=== PATIENT | male | born 1960 | race Two or more races ===

== ENCOUNTER 2018-04-24 09:15 | Emergency (ER) | payer OTHER ==
[~2018-04-24] VITALS: Ht 175.3 cm; Wt 74.8 kg
[~2018-04-24 09:15] MED LIST: GLUCOPHAGE XR500 MG PO; GLUCOTROL10 MG PO; LIPITOR20 MG PO
[2018-04-24] MEDS ORDERED: PRINIVIL20 MG PO (09:53)
== END 2018-04-25 13:46 | disposition home or self-care (01) ==
LOC: ER 09:15
DX: R42 Dizziness and giddiness (principal); I95.9 Hypotension, unspecified; R53.1 Weakness

== ENCOUNTER → 2018-06-17 | Emergency (ER) | payer OTHER ==
[~2018-06-17] VITALS: Ht 175.3 cm; Wt 74.8 kg
[~2018-06-17] MED LIST changes: +PRINIVIL20 MG PO; +VISTARIL25 MG PO
== END | disposition home or self-care (01) ==
LOC: ER 01:26
DX: R00.2 Palpitations (principal); F41.1 Generalized anxiety disorder

== ENCOUNTER 2018-12-24 18:47 | Emergency (ER) | payer OTHER ==
[~2018-12-24] VITALS: Ht 175.3 cm; Wt 74.8 kg
== END 2018-12-24 23:54 | disposition home or self-care (01) ==
LOC: ER 18:47
DX: K59.09 Other constipation (principal); R42 Dizziness and giddiness

== ENCOUNTER 2019-03-07 10:01 | Emergency (ER) | payer OTHER ==
[~2019-03-07] VITALS: Ht 175.3 cm; Wt 74.8 kg
== END 2019-03-07 14:46 | disposition home or self-care (01) ==
LOC: ER 10:01
DX: R53.81 Other malaise (principal)

== ENCOUNTER 2019-09-04 23:05 | Emergency (ER) | payer OTHER ==
[~2019-09-04] VITALS: Ht 175.3 cm; Wt 78.0 kg
== END 2019-09-05 05:45 ==
LOC: ER 23:05
DX: H43.391 Other vitreous opacities, right eye (principal)

== ENCOUNTER 2020-11-05 14:43 | Outpatient (CLI) | payer OTHER | END 2020-11-05 14:44 | disposition home or self-care (01) | LOC: PPH VACUNA 14:43 | DX: Z23 Encounter for immunization (principal) ==

== ENCOUNTER 2022-07-22 13:43 | Outpatient (CLI) | payer OTHER | END 2022-07-22 13:53 | disposition home or self-care (01) | LOC: PPH VACUNA 13:43 | PROVIDERS: ATTEND Emergency Medicine Pediatric Emergency Medicine | DX: Z23 Encounter for immunization (principal) ==

== ENCOUNTER 2022-10-16 15:45 | Emergency (ER) | payer OTHER ==
[~2022-10-16] VITALS: Ht 175.3 cm; Wt 77.1 kg
[2022-10-16] MEDS ORDERED: GLIPIZIDE XL10 MG (16:44)
[2022-10-16] MEDS ORDERED: CRESTOR40 MG PO (16:45)
[2022-10-16] MEDS ORDERED: TOPROL XL25 M1 (16:45)
[2022-10-16] MEDS ORDERED: LYRICA50 MG PO (16:47)
[2022-10-16] MEDS ORDERED: ECOTRIN325 M1 PO (16:47)
[2022-10-16] MEDS ORDERED: TAMS0.4C PO (16:47)
[2022-10-16] MEDS ORDERED: HORIZANT300 MG (16:48)
[2022-10-16] MEDS ORDERED: CLONAZEPAM0.5 MG PO (16:48)
[2022-10-16] MEDS ORDERED: ZOLPIDEM TARTR3.5 MG (16:48)
[2022-10-16] MEDS ORDERED: DRAMAMINE LESS25 MG (16:49)
[2022-10-16] MEDS ORDERED: LANTUS SOL100 UNIT/1 (16:50)
== END 2022-10-16 18:57 | disposition home or self-care (01) ==
LOC: ER 15:45
DX: R42 Dizziness and giddiness (principal); R51.9 Headache, unspecified

== ENCOUNTER 2023-06-05 13:41 | Emergency (ER) | payer OTHER ==
[~2023-06-05] VITALS: Ht 175.3 cm; Wt 77.1 kg
[~2023-06-05 13:41] MED LIST changes: +CLONAZEPAM0.5 MG PO; +CRESTOR40 MG PO; +DRAMAMINE LESS25 MG; +ECOTRIN325 M1 PO; +GLIPIZIDE XL10 MG; +HORIZANT300 MG; +LANTUS SOL100 UNIT/1; +LYRICA50 MG PO; +TAMS0.4C PO; +TOPROL XL25 M1; +ZOLPIDEM TARTR3.5 MG
[2023-06-05] MEDS ORDERED: JENTADUETO 2.51 EAC2 (15:26)
[2023-06-05 17:13] LABS: HEMOGLOBIN 14.6 g/dL (13-16.00); MEAN CELL VOLUME 92.8 fL (80.0-100.00); MEAN CORPUSCULAR HEMOGLOBIN 31.6 pg (27.00-32.0); PLATELET COUNT 284 K/uL (150-450); RED BLOOD COUNT 4.63 M/uL (4.00-6.00); RED CELL DISTRIBUTION WIDTH 14.3 % (11.5-14.5)
[2023-06-05 17:49] LABS: ALBUMIN 3.7 gm/dL (3.4-5.0); BILIRUBIN TOTAL 0.27 mg/dL (0.3-1.2); CREATININE SERUM 2.55 mg/dL (0.70-1.30); GFR 25.62; GLOBULINA 3.6 G/DL (2.4-3.5); POTASSIUM 4.34 mEq/L (3.5-5.1); TOTAL PROTEIN 7.3 gm/dL (6.4-8.2)
== END 2023-06-05 19:35 | disposition home or self-care (01) ==
LOC: ER 13:41
PROVIDERS: General Practice
DX: R55 Syncope and collapse (principal); E11.9 Type 2 diabetes mellitus without complications; Z79.84 Long term (current) use of oral hypoglycemic drugs; I10 Essential (primary) hypertension; Z86.79 Personal history of other diseases of the circulatory system

== ENCOUNTER 2023-08-19 11:05 | Emergency (ER) | payer OTHER ==
[~2023-08-19] VITALS: Ht 175.3 cm; Wt 78.0 kg
[~2023-08-19 11:05] MED LIST changes: +JENTADUETO 2.51 EAC2
[2023-08-19] MEDS ORDERED: NORFLEX100MG PO (17:07)
== END 2023-08-19 17:38 | disposition home or self-care (01) ==
LOC: ER 11:06
DX: S79.811A Other specified injuries of right hip, initial encounter (principal); S70.01XA Contusion of right hip, initial encounter; W19.XXXA Unspecified fall, initial encounter; Y93.89 Activity, other specified; Y92.89 Other specified places as the place of occurrence of the external cause; Y99.8 Other external cause status; E11.9 Type 2 diabetes mellitus without complications; Z79.4 Long term (current) use of insulin

== ENCOUNTER 2024-04-28 12:46 | Inpatient (IN) | payer OTHER ==
[~2024-04-28] VITALS: Ht 175.3 cm; Wt 77.1 kg
[~2024-04-28 12:46] MED LIST changes: +NORFLEX100MG PO
[2024-04-28] MEDS ORDERED: MORPHINE SULFATE 4 MG/ML VIAL IV ONE (14:00)
[2024-04-28] MEDS ORDERED: 0.9 % SODIUM CHLORIDE 1,000 ML IV ONE (14:00)
[2024-04-28] MEDS ORDERED: FAMOtidine 10 MG/ML (4ML VIAL) IV ONE (14:00)
[2024-04-28 14:23] LABS: HEMATOCRIT 47.5 % (39.0-48.0); HEMOGLOBIN 15.9 g/dL (13-16.00); MEAN CORPUSCULAR HEMOGLOBIN 31.1 pg (27.00-32.0); MEAN CORPUSCULAR HGB CONC 33.4 g/dl (32.0-36.0); PLATELET COUNT 333 K/uL (150-450); RED CELL DISTRIBUTION WIDTH 12.9 % (11.5-14.5)
[2024-04-28 14:48] LABS: ALBUMIN 3.6 gm/dL (3.4-5.0); BILIRUBIN TOTAL 0.38 mg/dL (0.3-1.2); CALCIUM 9.1 mg/dL (8.5-10.1); CREATININE SERUM 2.27 mg/dL (0.70-1.30); GFR 29.21; GLOBULINA 3.7 G/DL (2.4-3.5); POTASSIUM 4.51 mEq/L (3.5-5.1); TOTAL PROTEIN 7.3 gm/dL (6.4-8.2)
[2024-04-28 15:53] LABS: ABG PH 7.327 (7.35-7.45); ABG PO2 84.7 mmHg (80-100); ABG pCO2 43.2 mmHg (35-45); BASE EXCESS -3.8 mmol/l; BICARBONATE 22.1 mmol/l (23-25); SaO2 95.2 %; Tco2 23.4 mmol/l
[2024-04-28 16:04] LABS: PH,URINE 5.5 (5.0-8.0); URINE APPEARANCE Clear; URINE BILIRRUBIN Negative (NEGATIVE); URINE BLOOD Negative; URINE COLOR Yellow; URINE KETONE Trace (NEGATIVE); URINE LEUKOCYTE Negative; URINE NITRATE Negative; URINE UROBILINOGEN 0.2 E.U./dl
[2024-04-28 16:07] LABS: URINE BACTERIA 26.4 uL (0.0-1933); URINE CAST 2.74 uL (0.0-1.40); URINE EPITHELIAL CELLS 8.4 uL (0.0-38.8); URINE RBC 3.2 uL (0.0-20.8); URINE WBC 7.2 uL (0.0-23.2)
[2024-04-28 16:09] LABS: allen test SATISFACTORY; o2 21 %; puncture site RADIAL RIGHT
[2024-04-28 16:36] LABS: URINE GLUCOSE >=1000 MG/DL (NEGATIVE); URINE PROTEIN 100 (NEGATIVE)
[2024-04-28] MEDS ORDERED: CLONAZEPAM 0.5 MG TABLET PO SCH (20:53)
[2024-04-28] MEDS ORDERED: TAMSULOSIN HCL 0.4 MG CAP PO SCH (20:53)
[2024-04-28] MEDS ORDERED: 0.9 % SODIUM CHLORIDE 1,000 ML IV SCH (21:00)
[2024-04-28] MEDS ORDERED: ACETAMINOPHEN 500 MG GEL..CAP PO PRN (21:00)
[2024-04-28] MEDS ORDERED: ONDANSETRON HCL 4 MG in 0.9 % SODIUM CHLORIDE 50 ML IV PRN (21:00)
[2024-04-28 21:59] LABS: INR 1.04; PARTIAL THROMBOPLASTIN TIME 32.9 SECONDS (22.0-34.0); PROTHROMBIN TIME 11.3 SECONDS (9.0-11.5)
[2024-04-28 22:02] LABS: MAGNESIUM 2.6 mg/dL (1.8-2.4); PHOSPHOROUS 4.6 mg/dL (2.5-4.9)
[2024-04-28] MEDS ORDERED: MEPERIDINE HCL/PF 25 MG/ML VIAL IM PRN (22:15)
[2024-04-28 22:43] VITALS: BP 142/85; O2SAT 96
[2024-04-29 01:10] VITALS: BP 130/79; O2SAT 100
[2024-04-29 08:49] VITALS: BP 101/64; O2SAT 98
[2024-04-29] MEDS ORDERED: ENOXAPARIN SODIUM 30 MG/0.3 ML SYRINGE SUBCUTANEO SCH (09:00)
[2024-04-29] MEDS ORDERED: FAMOTIDINE/PF 20 MG in 0.9 % SODIUM CHLORIDE 8 ML IV PUSH SCH (09:00)
[2024-04-29] MEDS ORDERED: ATORVASTATIN CALCIUM 40 MG TABLET PO SCH (09:00)
[2024-04-29] MEDS ORDERED: METOPROLOL SUCCINATE 25 MG TAB.SR.24H PO SCH (09:00)
[2024-04-29] MEDS ORDERED: GABAPENTIN 300 MG CAPSULE PO SCH (17:00)
[2024-04-29 17:52] VITALS: BP 130/80
[2024-04-29] MEDS ORDERED: DOCUSATE CALCIUM 240 MG CAPSULE PO SCH (18:03)
[2024-04-29] MEDS ORDERED: LACTULOSE 20 G/30 ML BLIST.PACK PO STA (18:03)
[2024-04-30 01:46] VITALS: BP 59/77; O2SAT 100
[2024-04-30 01:49] VITALS: BP 159/77; O2SAT 100
[2024-04-30 06:31] LABS: HEMATOCRIT 43.6 % (39.0-48.0); HEMOGLOBIN 14.7 g/dL (13-16.00); MEAN CELL VOLUME 92.2 fL (80.0-100.00); MEAN CORPUSCULAR HEMOGLOBIN 31.1 pg (27.00-32.0); MEAN CORPUSCULAR HGB CONC 33.8 g/dl (32.0-36.0); PLATELET COUNT 253 K/uL (150-450); RED BLOOD COUNT 4.73 M/uL (4.00-6.00); RED CELL DISTRIBUTION WIDTH 13.1 % (11.5-14.5)
[2024-04-30 07:13] LABS: CALCIUM 8.5 mg/dL (8.5-10.1); CREATININE SERUM 1.89 mg/dL (0.70-1.30); GFR 36.09; POTASSIUM 4.84 mEq/L (3.5-5.1)
[2024-04-30 07:45] VITALS: BP 91/57; O2SAT 90
== END 2024-04-30 12:52 | disposition home or self-care (01) | DRG 684 ==
LOC: ER 12:47 → MEDI 21:29
PROVIDERS: General Practice; ADMIT Internal Medicine; ATTEND Internal Medicine
PROC: BW21ZZZ Computerized Tomography (CT Scan) of Abdomen and Pelvis (ICD-10-PCS; principal; 2024-04-28)
DX: N17.9 Acute kidney failure, unspecified (principal); I95.9 Hypotension, unspecified; I12.9 Hypertensive chronic kidney disease with stage 1 through stage 4 chronic kidney disease, or unspecified chronic kidney disease; E11.22 Type 2 diabetes mellitus with diabetic chronic kidney disease; N18.9 Chronic kidney disease, unspecified; Z79.4 Long term (current) use of insulin

== ENCOUNTER 2025-03-06 09:00 | Day surgery (SDC) | payer OTHER ==
[2025-03-06] MEDS ORDERED: DIPHENHYDRAMINE HCL 50 MG/ML VIAL 1ML IV ONE (15:00)
[2025-03-06] MEDS ORDERED: fentaNYL CITRATE 50 MCG/ML AMPUL IV PUSH ONE (15:00)
[2025-03-06] MEDS ORDERED: MIDAZOLAM HCL 2 MG/2 ML VIAL IV ONE (15:00)
== END 2025-03-06 16:10 | disposition home or self-care (01) ==
LOC: AMB-ENDOS 09:00
PROVIDERS: ATTEND Internal Medicine
DX: D12.4 Benign neoplasm of descending colon (principal); D12.5 Benign neoplasm of sigmoid colon; K63.5 Polyp of colon; K57.30 Diverticulosis of large intestine without perforation or abscess without bleeding; K64.4 Residual hemorrhoidal skin tags; Z86.0101 Personal history of adenomatous and serrated colon polyps

== ENCOUNTER 2025-08-02 08:23 | Emergency (ER) | payer OTHER ==
[~2025-08-02] VITALS: Ht 175.3 cm; Wt 74.8 kg
[2025-08-02] MEDS ORDERED: DAPAGLIFLOZIN10 MG (08:43)
[2025-08-02] MEDS ORDERED: ADULT ASPIRIN81 MG (08:44)
[2025-08-02] MEDS ORDERED: CLONIDINE HCL0.2 MG (08:45)
[2025-08-02 09:40] LABS: BASO % 0.4 % (0.1-1.2); EOS # 0.02 (0.04-0.54); EOS % 0.2 % (0.7-7.0); LYMPH # 1.41 (1.18-3.74); LYMPH % 11.9 % (19.3-53.1); MEAN PLATELET VOLUME 10.50 fl (9.4-12.4); MONO # 0.88 (0.24-0.82); MONO % 7.5 % (4.7-12.5); NEUT # 9.40 (1.56-6.13); NEUT % 79.7 % (34.0-71.1); RED CELL DISTRIBUTION WIDTH 12.5 % (11.6-14.4)
[2025-08-02 09:42] LABS: ERYTHROCYTE SEDIMENTATION RATE 8 mm/hr (0-20)
[2025-08-02 09:51] LABS: URINE APPEARANCE Clear; URINE BILIRRUBIN Negative (NEGATIVE); URINE BLOOD Negative; URINE COLOR Yellow; URINE KETONE 15 (NEGATIVE); URINE LEUKOCYTE Negative; URINE NITRATE Negative; URINE PROTEIN Negative (NEGATIVE); URINE UROBILINOGEN 1.0 E.U./dl
[2025-08-02 09:55] LABS: URINE BACTERIA 6.8 uL (0.0-1933)
[2025-08-02 09:57] LABS: URINE CAST 0.00 uL (0.0-1.40); URINE EPITHELIAL CELLS 0.1 uL (0.0-38.8); URINE GLUCOSE >=1000 MG/DL (NEGATIVE); URINE RBC 0.5 uL (0.0-20.8); URINE WBC 0.9 uL (0.0-23.2)
[2025-08-02 10:01] LABS: INR 1.06
[2025-08-02 10:13] LABS: ALT/SGPT 55 U/L (12-78); AST/SGOT 36 U/L (15-37); BILIRUBIN TOTAL 0.48 mg/dL (0.3-1.2); BUN CREA RATIO 17 (7.0-25.0); CREATININE SERUM 1.63 mg/dL (0.70-1.30); GFR 42.67; GLOBULINA 3.4 G/DL (2.4-3.5); TSH 0.875 uIU/mL (0.358-3.74)
[2025-08-02 10:16] LABS: GLUCOSE FASTING 272 mg/dL (65-100); OSMOLALITY SERUM 291 MOSM/KG (275-295)
[2025-08-02] MEDS ORDERED: 0.9 % SODIUM CHLORIDE 1,000 ML IV STA (10:35)
[2025-08-02] MEDS ORDERED: CEFTRIAXONE SODIUM 1,000 MG VIAL IV STA (11:26)
[2025-08-02] MEDS ORDERED: LEXAPRO5 MG PO (12:37)
[2025-08-02] MEDS ORDERED: ATARAX25 MG PO (12:37)
[2025-08-02] MEDS ORDERED: MELATONIN10 MG PO (12:37)
[2025-08-02] MEDS ORDERED: ZITHROMAX500 MG PO (12:37)
== END 2025-08-02 13:55 | disposition home or self-care (01) ==
LOC: ER 08:23
PROVIDERS: Physician Assistant Medical
DX: F41.8 Other specified anxiety disorders (principal); N17.9 Acute kidney failure, unspecified; J06.9 Acute upper respiratory infection, unspecified